=== PATIENT | female | born 1960 | race African-American/Black ===

== ENCOUNTER 2017-05-04 08:44 | Outpatient (CLI) | payer OTHER ==
[2017-05-04 09:07] LABS: Clarity Clear (Clear)
[2017-05-04 09:08] LABS: Bilirubin Negative (Negative); Blood, Urine Negative (Negative); Glucose, Urine (Dipstick) Negative (Negative); Leukocyte Negative (Negative); Nitrite Negative (Negative); Protein, Urine (Dipstick) Trace mg/dL (Neg-Trace); Specific Gravity, Urine 1.015 (1.005-1.030); Urobilinogen 0.2 mg/dL (0.2-1.0); pH, Urine 5.5 (5.0-9.0)
[2017-05-04 09:26] LABS: Anion Gap 15 mmol/L (10-20); BUN (Urea Nitrogen) 22 mg/dL (9.8-20.1); Calc. Creatinine Clearance 0 mL/min (70-130); Calcium 9.4 mg/dL (7.8-10.44); Carbon Dioxide 27 mmol/L (22-29); Chloride 105 mmol/L (98-107); Estimated GFR-MDRD 58; Glucose 97 mg/dL (70-105); Phosphorus 2.8 mg/dL (2.3-4.7); Potassium 3.6 mmol/L (3.5-5.1); Sodium 143 mmol/L (136-145); Uric Acid 9.7 mg/dL (2.6-6.0)
[2017-05-04 09:41] LABS: Hemoglobin 14.6 g/dL (12.0-16.0); Mean Corpuscular Hemoglobin 26.6 pg (27.0-31.0); Mean Corpuscular Volume 85.8 fl (81.0-99.0); Platelet Count 287 thou/uL (130-400); Red Blood Cell (RBC) Count 5.48 mill/uL (4.20-5.40); White Blood Cell (WBC) Count 8.1 thou/uL (4.8-10.8)
[2017-05-04 17:56] LABS: Creatinine, Urine 126.34 mg/dL (47-110)
[2017-05-06 07:27] LABS: Antinuclear AB Negative (Negative)
[2017-05-07 15:22] LABS: ANCA Pattern <1:20 titer (Neg:<1:20); ANCA Total <1:20 titer (Neg:<1:20); Atypical pANCA <1:20 titer (Neg:<1:20)
== END 2017-05-04 08:45 | disposition home or self-care (01) ==
LOC: MADLAB 08:44
PROVIDERS: ATTEND Internal Medicine Nephrology
DX: I12.9 Hypertensive chronic kidney disease with stage 1 through stage 4 chronic kidney disease, or unspecified chronic kidney disease (principal); N18.3 Chronic kidney disease, stage 3 (moderate); N17.9 Acute kidney failure, unspecified; J70.9 Respiratory conditions due to unspecified external agent; N39.0 Urinary tract infection, site not specified; I25.10 Atherosclerotic heart disease of native coronary artery without angina pectoris; K21.9 Gastro-esophageal reflux disease without esophagitis
CPT/HCPCS: 36415; 80069; 81003; 82570; 84156; 84550; 85027; 85652; 86038; 86256

== ENCOUNTER 2017-07-08 11:04 | Outpatient (CLI) | payer OTHER ==
[2017-07-08 11:47] LABS: Albumin 4.3 g/dL (3.5-5.0); Anion Gap 16 mmol/L (10-20); BUN (Urea Nitrogen) 23 mg/dL (9.8-20.1); Calc. Creatinine Clearance 0 mL/min (70-130); Calcium 10.1 mg/dL (7.8-10.44); Carbon Dioxide 25 mmol/L (22-29); Chloride 101 mmol/L (98-107); Estimated GFR-MDRD 63; Glucose 109 mg/dL (70-105); Phosphorus 3.6 mg/dL (2.3-4.7); Potassium 3.3 mmol/L (3.5-5.1); Sodium 139 mmol/L (136-145); Uric Acid 10.7 mg/dL (2.6-6.0)
[2017-07-08 13:12] LABS: Band 2 % (5-11); Eosinophils 1 % (0-10); Hemoglobin 15.6 g/dL (12.0-16.0); Lymphocytes 39 % (21-51); MDiff Complete? YES; Mean Corpuscular Hemoglobin 25.6 pg (27.0-31.0); Mean Corpuscular Volume 85.4 fl (81.0-99.0); Mean Platelet Volume 8.8 fL (7.4-10.4); Monocytes 5 % (0-10); Neutrophil 50 % (42-75); PLT Morphology Comment Appears Adequate; Platelet Count 303 thou/uL (130-400); RBC Distribution Width 15.3 % (11.5-14.5); RBC Morphology Normal; Reactive Lymphocytes 3 % (0-10); White Blood Cell (WBC) Count 8.4 thou/uL (4.8-10.8)
[2017-07-08 17:13] LABS: Creatinine, Urine 141.97 mg/dL (47-110)
== END 2017-07-08 11:05 | disposition home or self-care (01) ==
LOC: MADLAB 11:04
PROVIDERS: ATTEND Internal Medicine Nephrology
DX: I12.9 Hypertensive chronic kidney disease with stage 1 through stage 4 chronic kidney disease, or unspecified chronic kidney disease (principal); N18.3 Chronic kidney disease, stage 3 (moderate); N17.9 Acute kidney failure, unspecified; J70.9 Respiratory conditions due to unspecified external agent; N39.0 Urinary tract infection, site not specified; J45.909 Unspecified asthma, uncomplicated; K21.9 Gastro-esophageal reflux disease without esophagitis; I25.10 Atherosclerotic heart disease of native coronary artery without angina pectoris
CPT/HCPCS: 36415; 80069; 82570; 84156; 84550; 85025; 85652

== ENCOUNTER 2019-01-30 19:36 | Emergency (ER) | payer OTHER ==
[2019-01-30] MEDS ORDERED: Ondansetron PF 4 MG/2 ML Vial ONE (19:58)
[2019-01-30] MEDS ORDERED: Sodium Chloride 0.9% 1,000 ML ONE ×2 (19:58→20:46)
[2019-01-30 20:16] LABS: #Basophils 0.1 thou/uL (0.0-0.2); #Eosinphils 0.3 thou/uL (0.0-0.7); #Lymphocytes 2.4 thou/uL (1.20-3.40); #Monocytes 0.6 thou/uL (0.11-0.59); #Neutrophils 6.3 thou/uL (1.40-6.50); %Basophils 1.1 % (0.0-1.0); %Eosinophils 2.9 % (0.0-10.0); %Lymphocytes 24.8 % (21.0-51.0); %Monocytes 5.7 % (0.0-10.0); %Neutrophils 65.5 % (42.0-75.0); Hemoglobin 13.2 g/dL (12.0-16.0); Mean Corpuscular HGB CONC 30.9 g/dL (32.0-36.0); Mean Corpuscular Hemoglobin 26.4 pg (27.0-31.0); Mean Corpuscular Volume 85.4 fL (78.0-98.0); Mean Platelet Volume 7.5 fL (7.4-10.4); Platelet Count 257 thou/uL (130-400); RBC Distribution Width 16.4 % (11.5-14.5); Red Blood Cell (RBC) Count 4.98 mill/uL (4.20-5.40); White Blood Cell (WBC) Count 9.6 thou/uL (4.8-10.8)
[2019-01-30 20:34] LABS: ALT (SGPT) 54 U/L (8-55); AST (SGOT) 40 U/L (5-34); Albumin 4.3 g/dL (3.5-5.0); Alkaline Phosphatase 44 U/L (40-150); Anion Gap 16 mmol/L (10-20); BUN (Urea Nitrogen) 50 mg/dL (9.8-20.1); Bilirubin, Total 0.2 mg/dL (0.2-1.2); Calc. Creatinine Clearance 0 mL/min (70-130); Calcium 9.8 mg/dL (7.8-10.44); Carbon Dioxide 22 mmol/L (22-29); Chloride 107 mmol/L (98-107); Estimated GFR-MDRD 36; Globulin 3.2 g/dL (2.4-3.5); Glucose 140 mg/dL (70-105); Lipase 29 U/L (8-78); Potassium 3.6 mmol/L (3.5-5.1); Protein, Total 7.5 g/dL (6.0-8.3); Sodium 141 mmol/L (136-145)
[2019-01-30] MEDS ORDERED: Promethazine HCl 25 MG/ML VIAL ONE (21:48)
[2019-01-30] MEDS ORDERED: Sodium Chloride 0.9% 100 ML ONE (22:11)
== END 2019-01-30 22:52 | disposition home or self-care (01) ==
LOC: MADERS 19:36
DX: E78.5 Hyperlipidemia, unspecified (principal); K52.9 Noninfective gastroenteritis and colitis, unspecified; I10 Essential (primary) hypertension; K21.9 Gastro-esophageal reflux disease without esophagitis; Z79.51 Long term (current) use of inhaled steroids; Z79.82 Long term (current) use of aspirin; Z79.899 Other long term (current) drug therapy
CPT/HCPCS: 80053; 83690; 85025; 87804; 96361; 96365; 96375; J2405; J2550; J7050

== ENCOUNTER 2019-06-20 15:05 | Emergency (ER) | payer OTHER ==
[2019-06-20 16:03] LABS: Bilirubin Negative (Negative); Blood, Urine Negative (Negative); Clarity Clear (Clear); Glucose, Urine (Dipstick) Negative (Negative); Leukocyte Small (Negative); Nitrite Negative (Negative); Protein, Urine (Dipstick) Negative (Neg-Trace); Urobilinogen 0.2 mg/dL (Less than 2)
[2019-06-20 16:07] LABS: ALT (SGPT) 22 U/L (8-55); AST (SGOT) 22 U/L (5-34); Albumin 4.4 g/dL (3.5-5.0); Alkaline Phosphatase 42 U/L (40-150); Anion Gap 17 mmol/L (10-20); BUN (Urea Nitrogen) 37 mg/dL (9.8-20.1); Bilirubin, Total 0.5 mg/dL (0.2-1.2); Calc. Creatinine Clearance 0 mL/min (70-130); Calcium 10.3 mg/dL (7.8-10.44); Carbon Dioxide 24 mmol/L (22-29); Chloride 104 mmol/L (98-107); Estimated GFR-MDRD 39; Globulin 3.6 g/dL (2.4-3.5); Glucose 105 mg/dL (70-105); Hemoglobin 14.4 g/dL (12.0-16.0); Mean Corpuscular HGB CONC 30.2 g/dL (32.0-36.0); Mean Corpuscular Hemoglobin 25.2 pg (27.0-31.0); Mean Corpuscular Volume 83.6 fL (78.0-98.0); Mean Platelet Volume 7.5 fL (7.4-10.4); Platelet Count 285 thou/uL (130-400); Potassium 4.3 mmol/L (3.5-5.1); RBC Distribution Width 15.2 % (11.5-14.5); Red Blood Cell (RBC) Count 5.72 mill/uL (4.20-5.40); Sodium 141 mmol/L (136-145); White Blood Cell (WBC) Count 9.3 thou/uL (4.8-10.8)
[2019-06-20 16:09] LABS: Bacteria/HPF 1+ HPF (None Seen); RBC/HPF None Seen HPF (0-3)
--- NOTE | 2019-06-20 16:33 | RAD ---
CHEST 2 VIEWS: Date: 06/20/19 COMPARISON: 11/09/18. HISTORY: Cough. FINDINGS: Normal cardiac silhouette. Pulmonary vessels and hilum are normal. Costophrenic angles are clear. No mass. No consolidation. No pneumothorax or osseous abnormalities. Lateral view is suboptimal due to poor penetration. IMPRESSION: No evidence of acute cardiopulmonary process. POS: [facility]
[2019-06-20] MEDS ORDERED: cefTRIAXone\\ROCEPHIN 1 GM VIAL ONE (16:45)
[2019-06-20] MEDS ORDERED: Metoprolol Tartrate 5 MG/5 ML VIAL ONE (16:45)
[2019-06-20] MEDS ORDERED: Sodium Chloride 0.9% 100 ML ONE (16:45)
[2019-06-20 16:48] LABS: Lymphocytes 20 % (21-51); MDiff Complete? YES; Manual Diff?? YES; Neutrophil 62 % (42-75); Reactive Lymphocytes 6 % (0-10)
[2019-06-20 16:49] LABS: Eosinophils 2 % (0-10); Monocytes 10 % (0-10); Platelet Morphology Comment Appears Adequate; RBC Morphology Normal
== END 2019-06-20 18:05 | disposition home or self-care (01) ==
LOC: MADERS 15:05
DX: J06.9 Acute upper respiratory infection, unspecified (principal); N39.0 Urinary tract infection, site not specified; E78.5 Hyperlipidemia, unspecified; I11.0 Hypertensive heart disease with heart failure; K21.9 Gastro-esophageal reflux disease without esophagitis; I50.9 Heart failure, unspecified; Z79.899 Other long term (current) drug therapy; Z79.51 Long term (current) use of inhaled steroids; Z79.82 Long term (current) use of aspirin
CPT/HCPCS: 36415; 71046; 80053; 81003; 81015; 83605; 84484; 85025; 85379; 87040; 87081; 87086; 87430; 93005; 94760; 96365; 96375; J0696; J3490

== ENCOUNTER 2019-08-27 05:08 | Emergency (ER) | payer OTHER ==
[2019-08-27] MEDS ORDERED: Ketorolac Tromethamine 60 MG/2 ML VIAL ONE (05:35)
--- NOTE | 2019-08-27 07:38 | RAD ---
Right humerus 2 views HISTORY: Right arm injury. FINDINGS: Humerus is intact. Marked elevation of the humeral head, lying immediately inferior to the acromion with undersurface remodeling. Small well-corticated ossification just lateral to the lateral humeral epicondyles. Possibly an old ossific avulsion or calcific deposition within the tendo n. No acute fracture, dislocation, or aggressive osseous erosions. IMPRESSION: Chronic rotator cuff tear. No acute osseous abnormalities are demonstrated.
== END 2019-08-27 08:05 | disposition home or self-care (01) ==
LOC: MADERS 05:08
DX: S46.911A Strain of unspecified muscle, fascia and tendon at shoulder and upper arm level, right arm, initial encounter (principal); S40.011A Contusion of right shoulder, initial encounter; I11.0 Hypertensive heart disease with heart failure; I50.9 Heart failure, unspecified; E78.5 Hyperlipidemia, unspecified; E78.00 Pure hypercholesterolemia, unspecified; K21.9 Gastro-esophageal reflux disease without esophagitis; Z79.899 Other long term (current) drug therapy; Z79.51 Long term (current) use of inhaled steroids; Z79.82 Long term (current) use of aspirin; W18.30XA Fall on same level, unspecified, initial encounter
CPT/HCPCS: 96372; J1885

== ENCOUNTER 2019-12-27 18:32 | Emergency (ER) | payer OTHER ==
[2019-12-27] MEDS ORDERED: Aspirin Chewable 81 MG TAB ONE (19:08)
[2019-12-27] MEDS ORDERED: Ondansetron PF 4 MG/2 ML Vial ONE (19:35)
--- NOTE | 2019-12-27 19:36 | RAD ---
Chest AP view INDICATION: Nausea with shortness of breath COMPARISON: December 19, 2019 FINDINGS: Lungs:Hypoventilation Cardiac silhouette:Heart size is moderately prominent but is more accentuated due to the low lung vol umes. Pulmonary vasculature:Normal Pleural spaces:No pleural effusion or pneumothorax is demonstrated. Upper abdomen:No abnormality seen. Osseous structures: No acute osseous abnormality. Additional findings:None. IMPRESSION: Hypoventilation. Stable moderate cardiomegaly
[2019-12-27] MEDS ORDERED: Sodium Chloride 0.9% 500 ML ONE (19:51)
[2019-12-27 19:54] LABS: ALT (SGPT) 29 U/L (8-55); AST (SGOT) 22 U/L (5-34); Albumin 4.4 g/dL (3.5-5.0); Alkaline Phosphatase 37 U/L (40-110); Anion Gap 22 mmol/L (10-20); BUN (Urea Nitrogen) 105 mg/dL (9.8-20.1); Bilirubin, Total 0.7 mg/dL (0.2-1.2); CK (CPK) 138 U/L (29-168); Calc. Creatinine Clearance 0 mL/min (70-130); Calcium 10.1 mg/dL (7.8-10.44); Carbon Dioxide 21 mmol/L (22-29); Chloride 94 mmol/L (98-107); Estimated GFR-MDRD 19; Globulin 3.2 g/dL (2.4-3.5); Glucose 92 mg/dL (70-105); Lipase 55 U/L (8-78); Potassium 4.8 mmol/L (3.5-5.1); Protein, Total 7.6 g/dL (6.0-8.3); Sodium 132 mmol/L (136-145)
[2019-12-27 20:00] LABS: #Basophils 0.2 thou/uL (0.0-0.2); #Eosinphils 0.2 thou/uL (0.0-0.7); #Lymphocytes 3.5 thou/uL (1.20-3.40); #Neutrophils 8.6 thou/uL (1.40-6.50); %Basophils 1.6 % (0.0-1.0); %Eosinophils 1.2 % (0.0-10.0); %Lymphocytes 26.2 % (21.0-51.0); %Monocytes 7.1 % (0.0-10.0); Hemoglobin 14.3 g/dL (12.0-16.0); Hypochromia SLIGHT = 6-15 cells (100X) (0-5/hpf); Large Platelets SLIGHT; MDiff Complete? YES; Mean Corpuscular HGB CONC 29.2 g/dL (32.0-36.0); Mean Corpuscular Hemoglobin 26.3 pg (27.0-31.0); Mean Corpuscular Volume 90.1 fL (78.0-98.0); Mean Platelet Volume 9.1 fL (7.4-10.4); Platelet Count 309 thou/uL (130-400); Platelet Morphology Comment Appears Adequate; RBC Distribution Width 14.5 % (11.5-14.5); Red Blood Cell (RBC) Count 5.45 mill/uL (4.20-5.40); White Blood Cell (WBC) Count 13.4 thou/uL (4.8-10.8)
[2019-12-27] MEDS ORDERED: Sodium Chloride 0.9% 100 ML ONE (20:11)
[2019-12-27] MEDS ORDERED: cefTRIAXone\\ROCEPHIN 1 GM VIAL ONE (20:11)
[2019-12-27] MEDS ORDERED: Sodium Chloride 0.9% 1,000 ML ONE (20:21)
--- NOTE | 2019-12-27 20:40 | CT ---
CT OF THE THORAX WITHOUT IV CONTRAST INDICATION: Dyspnea COMPARISON: CT PE study dated January 05, 2016 FINDINGS: LUNGS: Subsegmental volume loss within the lingula with associated scarring is stable. The multiple s cattered noncalcified pulmonary nodules affecting both lungs largely resolved. There is some dependent subpleural type nodularity and volume loss involving both lower lobes. No suspicious pulmon hernando nodule is evident. Pleural spaces: Clear Lymph nodes: No pathologically enlarged lymph nodes. Heart and great vessels: There are mild vascular calcifications involving thoracic aorta and coronary arteries. Upper abdomen: There is a stable cyst within the right hepatic dome. Visualized adrenal glands, unopa cified pancreas and spleen appear within normal limits. Osseous structures: No acute osseous abnormality. There is scattered degenerative and osteoarthritic change present. IMPRESSION: 1. No acute cardiopulmonary abnormality. 2. The multiple scattered pulmonary nodules and mediastinal lymphadenopathy has resolved. No suspicio us residual pulmonary nodule identified.
[2019-12-27] MEDS ORDERED: Azithromycin 500 MG VIAL ONE (20:58)
== END 2019-12-27 21:05 | disposition short-term general hospital (02) ==
LOC: MADERS 18:32
DX: N17.9 Acute kidney failure, unspecified (principal); R06.00 Dyspnea, unspecified; F17.210 Nicotine dependence, cigarettes, uncomplicated; E03.9 Hypothyroidism, unspecified; E78.5 Hyperlipidemia, unspecified; E78.00 Pure hypercholesterolemia, unspecified; I11.0 Hypertensive heart disease with heart failure; I50.9 Heart failure, unspecified; K21.9 Gastro-esophageal reflux disease without esophagitis; J45.909 Unspecified asthma, uncomplicated
CPT/HCPCS: 36415; 71045; 71250; 80053; 82550; 83605; 83690; 83880; 84484; 85025; 87040; 87804; 93005; 96361; 96365; 96375; J0456; J0696; J2405; J3490; J7050

== ENCOUNTER 2025-07-13 07:37 | Emergency (ER) | payer OTHER ==
[2025-07-13] MEDS ORDERED: Ondansetron PF 4 MG/2 ML Vial ONE (08:01)
[2025-07-13] MEDS ORDERED: Ketorolac Tromethamine 30 MG (1 mL) VIAL ONE (08:02)
[2025-07-13 08:28] LABS: Bicarbonate (HCO3v) 23.6 mmol/L (22.0-28.0); CO2 Tension (PvCO2) 54.2 mmHg (42.0-51.0); Calcium, Ionized 1.19 mmol/L (1.15-1.33); Chloride 107 mmol/L (98-107); Hemoglobin - Calc 17.7 g/dL (12.0-16.0); Potassium 5.6 mmol/L (3.5-5.1); Sodium 137 mmol/L (138-145); T. Carbon Dioxide 25.2 mmol/L (22.0-28.0); vO2 Saturation-calc 98.8 % (60.0-85.0)
[2025-07-13 08:29] LABS: Hematocrit 52.3 % (36.0-47.0); Hemoglobin 15.3 g/dL (12.0-16.0); Mean Corpuscular Hemoglobin 26.5 pg (27.0-31.0); Mean Corpuscular Volume 90.6 fl (78.0-98.0); Platelet Count 175 10x3/uL (130-400); Red Blood Cell (RBC) Count 5.78 mill/uL (4.20-5.40); White Blood Cell (WBC) Count 16.0 10x3/uL (4.8-10.8)
[2025-07-13 08:33] LABS: Manual Diff?? YES
[2025-07-13 08:34] LABS: MDiff Complete? YES
[2025-07-13 08:35] LABS: Platelet Adequacy Comment Appears Adequate
[2025-07-13 08:37] LABS: ALT (SGPT) 38 U/L (Less than 34); AST (SGOT) 50 U/L (11-34); Albumin 3.9 g/dL (3.1-4.5); Alkaline Phosphatase 47 U/L (40-110); Anion Gap 22 mmol/L (10-20); BUN (Urea Nitrogen) 29 mg/dL (9.8-20.1); Bilirubin, Total 0.6 mg/dL (0.3-1.2); Calc. Creatinine Clearance 0 mL/min (70-130); Calcium 9.5 mg/dL (7.8-10.44); Carbon Dioxide 16 mmol/L (23-31); Chloride 106 mmol/L (98-107); Globulin 3.9 g/dL (2.4-3.5); Glucose 164 mg/dL (80-115); Potassium 4.3 mmol/L (3.5-5.1); Sodium 140 mmol/L (136-145)
[2025-07-13 08:56] LABS: Glucose, Urine (Dipstick) 500 mg/dL (Negative); Leukocyte Small (Negative); Protein, Urine (Dipstick) Negative (Neg-Trace); Specific Gravity, Urine 1.020 (1.005-1.030)
[2025-07-13 09:02] LABS: CAUTI Indications for Culture Fever or rigors; RBC/HPF 0-3 HPF (0-3); WBC/HPF Greater than 50 HPF (0-3)
[2025-07-13 09:03] LABS: Bacteria/HPF 1+ HPF (None Seen)
[2025-07-13 09:04] LABS: Urine Culture Reflex Yes Yes
[2025-07-13] MEDS ORDERED: Acetaminophen 500 MG TAB ONE (09:44)
== END 2025-07-13 10:42 | disposition short-term general hospital (02) ==
LOC: MADERS 07:37
DX: N39.0 Urinary tract infection, site not specified (principal); R65.20 Severe sepsis without septic shock; I11.0 Hypertensive heart disease with heart failure; I50.9 Heart failure, unspecified; E78.00 Pure hypercholesterolemia, unspecified; J45.909 Unspecified asthma, uncomplicated; Z79.899 Other long term (current) drug therapy; Z79.84 Long term (current) use of oral hypoglycemic drugs; Z79.51 Long term (current) use of inhaled steroids
CPT/HCPCS: 36415; 74176; 80053; 81001; 82330; 82435; 82803; 83605; 84132; 84295; 85014; 85025; 87040; 87077; 87086; 87149; 87426; 93005; 94760; 96365; 96366; 96367; 96375; J1885; J2405; J2543; J3373; J7030; J7050